=== PATIENT | male | born 1935 | race Caucasian/White ===

== ENCOUNTER 2018-10-07 14:11 | Emergency (ER) | payer MEDICARE ==
[~2018-10-07] VITALS: Ht 182.9 cm; Wt 100.2 kg
[~2018-10-07 14:11] MED LIST: Acidophilus La100 GM PO; CITA20 PO; GLIP2.5ER; GLIP2.5ER PO; HCTZ/LISINOPRIL; HYDCHL25 PO; HYDR1TAB94 PO; LISI20 PO; LOSA50 PO; NOVOLIN N SC; Omeprazole20 M1 PO; SIME80CH PO; SIMV20 PO; SIMV40
[2018-10-07 14:38] LABS: BASOPHILS ABSOLUTE AUTO 0.03 K/mm3 (0.00-0.23); BASOPHILS PERCENT AUTO 0 % (0-2); EOSINOPHILS ABSOLUTE AUTO 0.06 K/mm3 (0.00-0.68); EOSINOPHILS PERCENT AUTO 1 % (0-6); Hematocrit 42.8 % (37.0-53.0); Hemoglobin 14.3 g/dL (13.5-17.5); IMMATURE GRAN ABSOLUTE AUTO 0.02 K/mm3 (0.00-0.10); IMMATURE GRAN PERCENT AUTO 0 % (0-1); LYMPHOCYTES ABSOLUTE AUTO 3.33 K/mm3 (0.84-5.20); LYMPHOCYTES PERCENT AUTO 35 % (21-46); MONOCYTES ABSOLUTE AUTO 0.53 K/mm3 (0.16-1.47); MONOCYTES PERCENT AUTO 6 % (4-13); Mean Corpuscular HGB 30.3 pg (26.0-34.0); Mean Corpuscular HGB Conc 33.4 g/dL (31.5-36.5); Mean Corpuscular Volume 91 fL (80-100); Mean Platelet Volume 9.6 fL (9.1-12.4); NEUTROPHILS ABSOLUTE AUTO 5.56 K/mm3 (1.96-9.15); NEUTROPHILS PERCENT AUTO 58 % (41-73); Platelet Count 281 K/mm3 (150-400); RDW Coefficient Variation 12.3 % (11.7-14.2); RDW Standard Deviation 41.1 fL (35.1-46.3); Red Blood Cell Count 4.72 M/mm3 (4.30-5.90); White Blood Cell Count 9.53 K/mm3 (4.00-11.30)
[2018-10-07 14:49] LABS: International Normalized Ratio 1.04; Prothrombin Time Results 10.7 Sec (9.7-11.5)
[2018-10-07 15:00] LABS: Alanine Aminotransfer (ALT/SGP 17 U/L (12-78); Albumin, Blood 3.7 g/dL (3.4-5.0); Albumin/Globulin Ratio 0.9 (0.8-1.8); Alk Phos 116 U/L (50-136); Anion Gap 9 mmol/L (6-16); Aspartate Aminotrans (AST/SGOT 10 U/L (12-37); Bilirubin, Total 0.6 mg/dL (0.1-1.0); Blood Urea Nitrogen 18 mg/dL (8-24); Bun/Creatinine Ratio 17.5 (12.0-20.0); CO2, Blood 28 mmol/L (21-32); CPK Creatine Kinase 43 U/L (39-308); Calcium, Blood 8.9 mg/dL (8.5-10.1); Chloride, Blood 97 mmol/L (98-108); Creatinine, Blood 1.03 mg/dL (0.60-1.20); Glomerular Filtration Rate >60 (60-); Glucose, Blood 201 mg/dL (70-99); Potassium, Blood 3.6 mmol/L (3.5-5.5); Sodium, Blood 134 mmol/L (136-145); Total Protein, Blood 7.7 g/dL (6.4-8.2); Troponin I <0.015 ng/mL (0.000-0.040)
[2018-10-07] MEDS ORDERED: Amlodipine Bes2.5 MG PO (15:49)
[2018-10-07] MEDS ORDERED: OXYC5 PO (15:50)
[2018-10-07] MEDS ORDERED: GABA100 PO (15:51)
[2018-10-07] MEDS ORDERED: IBUP600 PO (15:52)
[2018-10-07] MEDS ORDERED: LOPE2C PO (15:52)
[2018-10-07] MEDS ORDERED: LOSA50 PO (15:53)
[2018-10-07] MEDS ORDERED: VITAMIN D250000 UNIT (15:55)
== END 2018-10-07 16:28 | disposition home or self-care (01) ==
LOC: ER 14:11
PROVIDERS: Emergency Medicine
DX: R55 Syncope and collapse (principal); I62.03 Nontraumatic chronic subdural hemorrhage; I25.2 Old myocardial infarction; I50.9 Heart failure, unspecified; Z88.8 Allergy status to other drugs, medicaments and biological substances; Z79.899 Other long term (current) drug therapy
CPT/HCPCS: 36415; 70450; 71046; 80053; 82550; 83880; 84484; 85025; 85610; 93005; 93010; 99285-25

== ENCOUNTER 2019-05-02 16:02 | Inpatient (IN) | payer MEDICARE ==
[~2019-05-02] VITALS: Ht 190.5 cm; Wt 91.3 kg
[~2019-05-02 16:02] MED LIST changes: +Amlodipine Bes2.5 MG PO; +GABA100 PO; +IBUP600 PO; +LOPE2C PO; +OXYC5 PO; +VITAMIN D250000 UNIT
[2019-05-02] MEDS ORDERED: AMLO5 PO (16:31)
[2019-05-02] MEDS ORDERED: CITA20 PO (16:31)
[2019-05-02] MEDS ORDERED: HUMULIN N100 UNIT/1 SC (16:32)
[2019-05-02] MEDS ORDERED: LOSA50 PO (16:33)
[2019-05-02] MEDS ORDERED: LACT PO (16:33)
[2019-05-02] MEDS ORDERED: OMEP20ER PO (16:34)
[2019-05-02] MEDS ORDERED: OXYC5 PO (16:41)
[2019-05-02] MEDS ORDERED: PRAZ1 PO (16:49)
[2019-05-02 17:52] LABS: BASOPHILS ABSOLUTE AUTO 0.03 K/mm3 (0.00-0.23); BASOPHILS PERCENT AUTO 0 % (0-2); EOSINOPHILS ABSOLUTE AUTO 0.05 K/mm3 (0.00-0.68); EOSINOPHILS PERCENT AUTO 1 % (0-6); Hematocrit 38.4 % (37.0-53.0); Hemoglobin 12.9 g/dL (13.5-17.5); IMMATURE GRAN ABSOLUTE AUTO 0.04 K/mm3 (0.00-0.10); IMMATURE GRAN PERCENT AUTO 0 % (0-1); LYMPHOCYTES ABSOLUTE AUTO 2.11 K/mm3 (0.84-5.20); LYMPHOCYTES PERCENT AUTO 21 % (21-46); MONOCYTES ABSOLUTE AUTO 0.83 K/mm3 (0.16-1.47); MONOCYTES PERCENT AUTO 8 % (4-13); Mean Corpuscular HGB 30.5 pg (26.0-34.0); Mean Corpuscular HGB Conc 33.6 g/dL (31.5-36.5); Mean Corpuscular Volume 91 fL (80-100); NEUTROPHILS ABSOLUTE AUTO 7.02 K/mm3 (1.96-9.15); NEUTROPHILS PERCENT AUTO 70 % (41-73); Platelet Count 246 K/mm3 (150-400); RDW Coefficient Variation 12.9 % (11.7-14.2); RDW Standard Deviation 42.5 fL (35.1-46.3); Red Blood Cell Count 4.23 M/mm3 (4.30-5.90); White Blood Cell Count 10.08 K/mm3 (4.00-11.30)
[2019-05-02 18:10] LABS: Alanine Aminotransfer (ALT/SGP 17 U/L (12-78); Albumin, Blood 3.4 g/dL (3.4-5.0); Albumin/Globulin Ratio 0.9 (0.8-1.8); Alk Phos 75 U/L (50-136); Anion Gap 7 mmol/L (6-16); Aspartate Aminotrans (AST/SGOT 15 U/L (12-37); Bilirubin, Total 0.5 mg/dL (0.1-1.0); Blood Urea Nitrogen 18 mg/dL (8-24); Bun/Creatinine Ratio 15.5 (12.0-20.0); CO2, Blood 27 mmol/L (21-32); Calcium, Blood 8.4 mg/dL (8.5-10.1); Chloride, Blood 102 mmol/L (98-108); Creatinine, Blood 1.16 mg/dL (0.60-1.20); Globulin, Blood 3.6 g/dL (2.2-4.0); Glomerular Filtration Rate >60 (60-); Glucose, Blood 120 mg/dL (70-99); Potassium, Blood 3.7 mmol/L (3.5-5.5); Sodium, Blood 136 mmol/L (136-145)
[2019-05-02 20:21] LABS: Source, Urine Clean Catch
[2019-05-02 20:25] LABS: Bilirubin, Urine Neg (Neg); Blood, Urine Neg (Neg); Glucose Qualitative, Urine Neg (Neg); Ketones, Urine Neg (Neg); Leukocyte Esterase, Urine Neg (Neg); Nitrite, Urine Neg (Neg); Protein, Urine Neg (Neg); Urobilinogen, Urine NORM (Normal)
[2019-05-02 20:29] LABS: Appearance, Urine Clear (Clear); Color, Urine Yellow (P-Yellow)
--- NOTE | 2019-05-03 04:43 | NUR ---
ELECTRONIC TECHNICIAN SUMMARY NEW ADMIT FROM THE ED TONIGHT. PT ADMITTED FOR SYNCOPE. PT HAD SEVERAL SYNCOPAL EPISODES AT HOME WITH SEVERAL GROUND LEVEL FALLS. PT HAS RED MITCH ON FOREHEAD FROM ONE OF THE FALLS. CHECKED ORTHOSTATIC VITALS WHEN PT ARRIVED TO FLOOR PER ORDERS. SBP 139 WHILE LAYING DOWN BUT DID DROP TO 79 WHEN STANDING. SBP RETURNS TO 120-130'S WHILE LAYING IN BED. PT DENIES DIZZINESS WHEN STANDING. 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 PT TO HAVE ECHO LATER TODAY. AAOX3, PLEASANT AND COOPERATIVE. VSS, WILL CONTINUE TO MONITOR.
[2019-05-03 05:09] LABS: BASOPHILS ABSOLUTE AUTO 0.02 K/mm3 (0.00-0.23); BASOPHILS PERCENT AUTO 0 % (0-2); EOSINOPHILS ABSOLUTE AUTO 0.09 K/mm3 (0.00-0.68); EOSINOPHILS PERCENT AUTO 1 % (0-6); Hematocrit 37.7 % (37.0-53.0); Hemoglobin 12.3 g/dL (13.5-17.5); IMMATURE GRAN ABSOLUTE AUTO 0.03 K/mm3 (0.00-0.10); IMMATURE GRAN PERCENT AUTO 0 % (0-1); LYMPHOCYTES ABSOLUTE AUTO 2.93 K/mm3 (0.84-5.20); LYMPHOCYTES PERCENT AUTO 39 % (21-46); MONOCYTES ABSOLUTE AUTO 0.66 K/mm3 (0.16-1.47); MONOCYTES PERCENT AUTO 9 % (4-13); Mean Corpuscular HGB 29.6 pg (26.0-34.0); Mean Corpuscular HGB Conc 32.6 g/dL (31.5-36.5); Mean Corpuscular Volume 91 fL (80-100); Mean Platelet Volume 10.2 fL (9.1-12.4); NEUTROPHILS ABSOLUTE AUTO 3.82 K/mm3 (1.96-9.15); NEUTROPHILS PERCENT AUTO 51 % (41-73); Platelet Count 231 K/mm3 (150-400); RDW Coefficient Variation 12.9 % (11.7-14.2); RDW Standard Deviation 42.7 fL (35.1-46.3); Red Blood Cell Count 4.15 M/mm3 (4.30-5.90); White Blood Cell Count 7.55 K/mm3 (4.00-11.30)
[2019-05-03 05:24] LABS: International Normalized Ratio 0.96; Prothrombin Time Results 10.2 Sec (9.7-11.5)
[2019-05-03 05:31] LABS: Alanine Aminotransfer (ALT/SGP 12 U/L (12-78); Albumin, Blood 3.1 g/dL (3.4-5.0); Albumin/Globulin Ratio 0.9 (0.8-1.8); Alk Phos 72 U/L (50-136); Anion Gap 5 mmol/L (6-16); Aspartate Aminotrans (AST/SGOT 7 U/L (12-37); Bilirubin, Total 0.5 mg/dL (0.1-1.0); Blood Urea Nitrogen 16 mg/dL (8-24); CHOL/HDL RATIO 5.2; CO2, Blood 28 mmol/L (21-32); Calcium, Blood 8.1 mg/dL (8.5-10.1); Chloride, Blood 107 mmol/L (98-108); Cholesterol 182 mg/dL (50-200); Globulin, Blood 3.5 g/dL (2.2-4.0); Glucose, Blood 116 mg/dL (70-99); HDL Cholesterol 35 mg/dL (>39); LDL/HDL RATIO 3.3; Low Density Lipoprotein Chol 114 mg/dL (0-110); Magnesium, Blood 2.2 mg/dL (1.6-2.4); Potassium, Blood 3.8 mmol/L (3.5-5.5); Sodium, Blood 140 mmol/L (136-145); Total Protein, Blood 6.6 g/dL (6.4-8.2); Triglycerides 163 mg/dL (30-160); Very Low Density Lipoprot Chol 32 mg/dL (6-32)
[2019-05-03 05:32] LABS: Bun/Creatinine Ratio 16.5 (12.0-20.0); Creatinine, Blood 0.97 mg/dL (0.60-1.20); Glomerular Filtration Rate >60 (60-)
--- NOTE | 2019-05-03 18:06 | NUR ---
SHIFT SUMMARY- PT DENIES PAIN. DENIES SOB. RESP E/U ON RA. DENIES N/V. PT HAD ECHO TODAY. PHYSICAL THERAPY AND OCCUPATIONAL THERAPY IN TO WORK WITH PT TODAY. FAMILY IN TO VISIT THIS AFTERNOON. NO OTHER SIGNIFICANT CHANGES THIS SHIFT.
--- NOTE | 2019-05-04 06:39 | NUR ---
SHIFT SUMMARY PT HAS NOT GOT OOB OR TRIED TO GET OOB. INCONT OF URINE. HE WAS ABLE TO SLEEP T/O NIGHT. NO C/O PAIN. CALL LIGHT IN REACH.
--- NOTE | 2019-05-04 17:38 | NUR ---
SHIFT SUMMARY- PT DENIES PAIN. DENIES SOB. RESP E/U ON RA. DENIES N/V. PT'S BP 146/73 WHILE SITTING THIS AM. PT'S BP DROPPED TO 113/[address] LINDER NOTIFIED. DR. LINDER ORDERED ONE TIME DOSE OF 500ML NS. PT'S IV INFILTRATED. DR. LINDER SAID OK TO PUT IN ORDER FOR NO IV ACCESS NEEDED. ENCOURGING PT TO DRINK WATER. L ARM ELEVATED ON PILLOW. ICE PACK APPLIED TO SITE. 1 ASSIST WITH FWW. NO OTHER SIGNIFICANT CHANGES THIS SHIFT.
[2019-05-05 05:33] LABS: Hematocrit 40.1 % (37.0-53.0); Hemoglobin 13.1 g/dL (13.5-17.5); Mean Corpuscular HGB 29.9 pg (26.0-34.0); Mean Corpuscular HGB Conc 32.7 g/dL (31.5-36.5); Mean Corpuscular Volume 92 fL (80-100); Platelet Count 239 K/mm3 (150-400); RDW Coefficient Variation 12.6 % (11.7-14.2); Red Blood Cell Count 4.38 M/mm3 (4.30-5.90); White Blood Cell Count 7.66 K/mm3 (4.00-11.30)
[2019-05-05 05:49] LABS: Anion Gap 6 mmol/L (6-16); Blood Urea Nitrogen 16 mg/dL (8-24); Bun/Creatinine Ratio 19.2 (12.0-20.0); CO2, Blood 28 mmol/L (21-32); Calcium, Blood 8.4 mg/dL (8.5-10.1); Chloride, Blood 105 mmol/L (98-108); Creatinine, Blood 0.83 mg/dL (0.60-1.20); Glomerular Filtration Rate >60 (60-); Glucose, Blood 130 mg/dL (70-99); Potassium, Blood 4.2 mmol/L (3.5-5.5); Sodium, Blood 139 mmol/L (136-145)
--- NOTE | 2019-05-05 05:58 | NUR ---
SHIFT SUMMARY PT INCONT OF URINE. HE WAS ABLE TO SLEEP THROUGH THE NIGHT. NO ACUTE CHANGES. CALL LIGHT IN REACH.
[2019-05-05] MEDS ORDERED: METO25ER PO (10:58)
--- NOTE | 2019-05-05 13:44 | NUR ---
D/C INSTRUCTIONS PROVIDED AND EXPLAINED TO PT AND PT'S DAUGHTER. TELE REMOVED. PT D/C VIA WHEELCHAIR WITH TIPPLE ENGINEER AND FAMILY.
== END 2019-05-05 12:10 | disposition home health service (06) | DRG 312 ==
LOC: ER 16:02 → MEDS 16:03
PROVIDERS: Emergency Medicine; Internal Medicine; Nurse Practitioner Acute Care; ADMIT Hospitalist
DX: I95.1 Orthostatic hypotension (principal); G45.9 Transient cerebral ischemic attack, unspecified; I50.22 Chronic systolic (congestive) heart failure; E11.9 Type 2 diabetes mellitus without complications; E78.5 Hyperlipidemia, unspecified; F03.90 Unspecified dementia, unspecified severity, without behavioral disturbance, psychotic disturbance, mood disturbance, and anxiety; I11.0 Hypertensive heart disease with heart failure; I25.10 Atherosclerotic heart disease of native coronary artery without angina pectoris; F32.9 Major depressive disorder, single episode, unspecified; G40.909 Epilepsy, unspecified, not intractable, without status epilepticus; Z79.4 Long term (current) use of insulin; J43.9 Emphysema, unspecified; R53.1 Weakness
CPT/HCPCS: 36415; 70496; 70498; 80048; 80053; 80061; 81003; 82947; 83605; 83735; 84146; 84484; 85025; 85027; 85610; 93306; 94762; 96372; 97161; 97165; 97530; 99285-25; G0378; J1650; J7030; J7040; Q9967

== ENCOUNTER 2023-02-13 00:58 | Emergency (ER) | payer OTHER ==
[~2023-02-13] VITALS: Ht 185.4 cm; Wt 81.7 kg
[~2023-02-13 00:58] MED LIST changes: +AMLO5 PO; +HUMULIN N100 UNIT/1 SC; +LACT PO; +METO25ER PO; +OMEP20ER PO; +PRAZ1 PO
[2023-02-13 01:20] LABS: BASOPHILS ABSOLUTE AUTO 0.02 K/mm3 (0.00-0.23); BASOPHILS PERCENT AUTO 0 % (0-2); EOSINOPHILS ABSOLUTE AUTO 0.05 K/mm3 (0.00-0.68); EOSINOPHILS PERCENT AUTO 1 % (0-6); Hematocrit 38.1 % (37.0-53.0); Hemoglobin 12.5 g/dL (13.5-17.5); IMMATURE GRAN ABSOLUTE AUTO 0.01 K/mm3 (0.00-0.10); IMMATURE GRAN PERCENT AUTO 0 % (0-1); LYMPHOCYTES ABSOLUTE AUTO 3.74 K/mm3 (0.84-5.20); LYMPHOCYTES PERCENT AUTO 38 % (21-46); MONOCYTES PERCENT AUTO 7 % (4-13); Mean Corpuscular HGB 29.3 pg (26.0-34.0); Mean Corpuscular HGB Conc 32.8 g/dL (31.5-36.5); Mean Corpuscular Volume 89 fL (80-100); Mean Platelet Volume 9.5 fL (9.1-12.4); NEUTROPHILS ABSOLUTE AUTO 5.35 K/mm3 (1.96-9.15); NEUTROPHILS PERCENT AUTO 54 % (41-73); Platelet Count 308 K/mm3 (150-400); RDW Coefficient Variation 13.2 % (11.7-14.2); Red Blood Cell Count 4.26 M/mm3 (4.30-5.90); White Blood Cell Count 9.87 K/mm3 (4.00-11.30)
[2023-02-13 01:39] LABS: Albumin, Blood 2.9 g/dL (3.4-5.0); Albumin/Globulin Ratio 0.6 (0.8-1.8); Bilirubin, Total 0.3 mg/dL (0.1-1.0); Bun/Creatinine Ratio 15.9 (12.0-20.0); Calcium, Blood 8.9 mg/dL (8.5-10.1); Creatinine, Blood 1.07 mg/dL (0.60-1.20); Globulin, Blood 4.6 g/dL (2.2-4.0); Potassium, Blood 3.6 mmol/L (3.5-5.5); Total Protein, Blood 7.5 g/dL (6.4-8.2)
[2023-02-13 02:36] LABS: Source, Urine Suprapubic Cath
[2023-02-13 02:41] LABS: Bilirubin, Urine Neg (Neg); Blood, Urine 4+ (Neg); Glucose Qualitative, Urine Neg (Neg); Ketones, Urine 2+ (Neg); Leukocyte Esterase, Urine 3+ (Neg); Nitrite, Urine Pos (Neg); Protein, Urine 3+ (Neg); Specific Gravity, Urine 1.015 (1.003-1.022); Urobilinogen, Urine NORM (Normal)
[2023-02-13 02:50] LABS: Appearance, Urine Cloudy (Clear); Color, Urine Yellow (P-Yellow)
[2023-02-13 02:51] LABS: Amorphous Mod (0-Heavy); Bacteria Many /hpf; Red Blood Cells, Urine 0-2 /hpf (0-2); Squamous Epithelial Cells Not Seen /hpf (Few); White Blood Cells, Urine TNTC /hpf (0-5)
[2023-02-13] MEDS ORDERED: SULTRIDS PO (04:27)
[2023-02-13] MEDS ORDERED: CEPH500 PO (04:27)
[2023-02-13 04:30] VITALS: BP 114/60
== END 2023-02-13 04:47 | disposition home or self-care (01) ==
LOC: ER 00:58
PROVIDERS: Student in an Organized Health Care Education/Training Program
DX: N39.0 Urinary tract infection, site not specified (principal); E86.0 Dehydration; L03.90 Cellulitis, unspecified; I11.0 Hypertensive heart disease with heart failure; I50.22 Chronic systolic (congestive) heart failure; E11.9 Type 2 diabetes mellitus without complications; G40.909 Epilepsy, unspecified, not intractable, without status epilepticus; I25.2 Old myocardial infarction; I25.10 Atherosclerotic heart disease of native coronary artery without angina pectoris; Z88.8 Allergy status to other drugs, medicaments and biological substances; Z79.899 Other long term (current) drug therapy; Z79.4 Long term (current) use of insulin; Z86.73 Personal history of transient ischemic attack (TIA), and cerebral infarction without residual deficits
CPT/HCPCS: 36415; 74177; 80053; 81001; 83605; 85025; 87077; 87086; 87186; 93005; 93010; 96361; 96374-59; 99284-25; J0696; J7030; Q9967

== ENCOUNTER 2023-06-25 15:14 | Emergency (ER) | payer OTHER, MEDICARE ==
[~2023-06-25] VITALS: Ht 182.9 cm; Wt 95.2 kg
[~2023-06-25 15:14] MED LIST changes: +CEFD300 PO; +CEPH500 PO; +SULTRIDS PO
[2023-06-25] MEDS ORDERED: TOLT4 PO (16:02)
[2023-06-25] MEDS ORDERED: DOXY100 PO (16:03)
[2023-06-25] MEDS ORDERED: METF500 PO (16:03)
[2023-06-25 16:04] LABS: BASOPHILS ABSOLUTE AUTO 0.02 K/mm3 (0.00-0.23); BASOPHILS PERCENT AUTO 0 % (0-2); EOSINOPHILS ABSOLUTE AUTO 0.07 K/mm3 (0.00-0.68); EOSINOPHILS PERCENT AUTO 1 % (0-6); Hemoglobin 13.1 g/dL (13.5-17.5); IMMATURE GRAN ABSOLUTE AUTO 0.03 K/mm3 (0.00-0.10); IMMATURE GRAN PERCENT AUTO 0 % (0-1); LYMPHOCYTES ABSOLUTE AUTO 4.37 K/mm3 (0.84-5.20); LYMPHOCYTES PERCENT AUTO 34 % (21-46); MONOCYTES ABSOLUTE AUTO 0.84 K/mm3 (0.16-1.47); MONOCYTES PERCENT AUTO 7 % (4-13); Mean Corpuscular HGB 30.4 pg (26.0-34.0); Mean Corpuscular HGB Conc 33.6 g/dL (31.5-36.5); Mean Corpuscular Volume 91 fL (80-100); Mean Platelet Volume 9.8 fL (9.1-12.4); NEUTROPHILS ABSOLUTE AUTO 7.69 K/mm3 (1.96-9.15); NEUTROPHILS PERCENT AUTO 59 % (41-73); Platelet Count 325 K/mm3 (150-400); RDW Standard Deviation 43.6 fL (35.1-46.3); Red Blood Cell Count 4.31 M/mm3 (4.30-5.90); White Blood Cell Count 13.02 K/mm3 (4.00-11.30)
[2023-06-25] MEDS ORDERED: LOPE2C PO (16:04)
[2023-06-25] MEDS ORDERED: ACET500 PO (16:04)
[2023-06-25] MEDS ORDERED: NITR100CA PO (16:05)
[2023-06-25] MEDS ORDERED: SIME80CH PO (16:06)
[2023-06-25] MEDS ORDERED: KETO15TC TOP (16:07)
[2023-06-25 16:34] LABS: Albumin, Blood 3.2 g/dL (3.4-5.0); Albumin/Globulin Ratio 0.7 (0.8-1.8); Bilirubin, Total 0.4 mg/dL (0.1-1.0); Bun/Creatinine Ratio 22.6 (12.0-20.0); Calcium, Blood 9.5 mg/dL (8.5-10.1); Creatinine, Blood 0.84 mg/dL (0.60-1.20); Globulin, Blood 4.5 g/dL (2.2-4.0); Magnesium, Blood 1.8 mg/dL (1.6-2.4); Potassium, Blood 3.9 mmol/L (3.5-5.5); Total Protein, Blood 7.7 g/dL (6.4-8.2)
[2023-06-25 19:35] LABS: Source, Urine Suprapubic Cath
[2023-06-25 19:38] LABS: Appearance, Urine Cloudy (Clear); Bilirubin, Urine Neg (Neg); Blood, Urine 4+ (Neg); Color, Urine Yellow (P-Yellow); Glucose Qualitative, Urine Neg (Neg); Ketones, Urine Neg (Neg); Leukocyte Esterase, Urine 3+ (Neg); Nitrite, Urine Neg (Neg); Protein, Urine 3+ (Neg); Urobilinogen, Urine NORM (Normal)
[2023-06-25 19:48] LABS: White Blood Cells, Urine TNTC /hpf (0-5)
[2023-06-25 19:49] LABS: Bacteria Many /hpf; Squamous Epithelial Cells Not Seen /hpf (Few); Yeast/Fungi Urine Mod /hpf
[2023-06-25 20:00] VITALS: BP 125/63
[2023-06-25] MEDS ORDERED: Bactrim Ds Tab1 EACH PO (20:35)
== END 2023-06-25 20:42 | disposition home or self-care (01) ==
LOC: ER 15:14
PROVIDERS: Physician Assistant
DX: N39.0 Urinary tract infection, site not specified (principal); R53.1 Weakness; E11.9 Type 2 diabetes mellitus without complications; G40.909 Epilepsy, unspecified, not intractable, without status epilepticus; K21.9 Gastro-esophageal reflux disease without esophagitis; I25.2 Old myocardial infarction; Z79.4 Long term (current) use of insulin; Z86.73 Personal history of transient ischemic attack (TIA), and cerebral infarction without residual deficits; I11.0 Hypertensive heart disease with heart failure; I50.22 Chronic systolic (congestive) heart failure; Z88.8 Allergy status to other drugs, medicaments and biological substances; Z79.84 Long term (current) use of oral hypoglycemic drugs; Z79.899 Other long term (current) drug therapy
CPT/HCPCS: 51702; 70450; 71045; 80053; 81001; 82947; 83735; 85025; 87077; 87086; 87106; 87186; 93005; 93010; 96360-59; 99285-25; A9270; J7030

== ENCOUNTER 2023-08-03 18:11 | Inpatient (IN) | payer OTHER ==
[~2023-08-03] VITALS: Ht 188 cm; Wt 76.5 kg
[~2023-08-03 18:11] MED LIST changes: +ACET500 PO; +Bactrim Ds Tab1 EACH PO; +DOXY100 PO; +KETO15TC TOP; +METF500 PO; +NITR100CA PO; +TOLT4 PO
[2023-08-03 19:24] LABS: BASOPHILS ABSOLUTE AUTO 0.03 K/mm3 (0.00-0.23); BASOPHILS PERCENT AUTO 0 % (0-2); EOSINOPHILS ABSOLUTE AUTO 0.13 K/mm3 (0.00-0.68); EOSINOPHILS PERCENT AUTO 1 % (0-6); Hematocrit 39.5 % (37.0-53.0); Hemoglobin 12.9 g/dL (13.5-17.5); IMMATURE GRAN ABSOLUTE AUTO 0.04 K/mm3 (0.00-0.10); IMMATURE GRAN PERCENT AUTO 0 % (0-1); LYMPHOCYTES ABSOLUTE AUTO 4.53 K/mm3 (0.84-5.20); LYMPHOCYTES PERCENT AUTO 39 % (21-46); MONOCYTES ABSOLUTE AUTO 0.66 K/mm3 (0.16-1.47); MONOCYTES PERCENT AUTO 6 % (4-13); Mean Corpuscular HGB Conc 32.7 g/dL (31.5-36.5); Mean Corpuscular Volume 92 fL (80-100); Mean Platelet Volume 9.5 fL (9.1-12.4); NEUTROPHILS ABSOLUTE AUTO 6.19 K/mm3 (1.96-9.15); NEUTROPHILS PERCENT AUTO 54 % (41-73); Platelet Count 388 K/mm3 (150-400); RDW Standard Deviation 43.8 fL (35.1-46.3); White Blood Cell Count 11.58 K/mm3 (4.00-11.30)
[2023-08-03 19:42] LABS: Albumin, Blood 3.2 g/dL (3.4-5.0); Albumin/Globulin Ratio 0.6 (0.8-1.8); Bilirubin, Total 0.2 mg/dL (0.1-1.0); Bun/Creatinine Ratio 18.4 (12.0-20.0); Calcium, Blood 8.9 mg/dL (8.5-10.1); Creatinine, Blood 0.76 mg/dL (0.60-1.20); Potassium, Blood 3.6 mmol/L (3.5-5.5); Total Protein, Blood 8.2 g/dL (6.4-8.2)
[2023-08-04 01:57] LABS: Magnesium, Blood 1.8 mg/dL (1.6-2.4); Phosphorus, Blood 2.7 mg/dL (2.5-4.9)
[2023-08-04 02:21] LABS: Source, Urine Urostomy Bag
[2023-08-04 02:23] LABS: Bilirubin, Urine Neg (Neg); Blood, Urine 4+ (Neg); Glucose Qualitative, Urine Neg (Neg); Ketones, Urine Neg (Neg); Leukocyte Esterase, Urine 3+ (Neg); Nitrite, Urine Neg (Neg); Protein, Urine 3+ (Neg); Urobilinogen, Urine NORM (Normal)
[2023-08-04 02:37] LABS: Appearance, Urine Turbid (Clear); Color, Urine Yellow (P-Yellow)
[2023-08-04 02:39] LABS: Bacteria Many /hpf; Squamous Epithelial Cells Few /hpf (Few); White Blood Cells, Urine TNTC /hpf (0-5)
[2023-08-04] MEDS ORDERED: MYRBETRIQ25 MG PO (06:08)
[2023-08-04] MEDS ORDERED: Pyridium100 MG PO (06:08)
[2023-08-04 06:46] VITALS: BP 129/60
[2023-08-04 07:17] VITALS: BP 133/66
[2023-08-04 15:33] VITALS: BP 141/66
--- NOTE | 2023-08-04 17:57 | NUR ---
SHIFT SUMMARY- PT ALERT AND ORIENTED, BEATRICE, FAMILY AT THE BEDSIDE. DR FREDERICK CONSULT CALLED AND HE CAME TO SEE THE PT TODAY. VASCULAR STUDY ORDERED. PT HAS BEEN IN BED T/O THE DAY MEDICATED FOR PIAN THE FAMILY REQUESTED, THE PT IS STOIC AND DOES NOT ASK FOR PAIN MANAGEMENT. WHEN OFFERED PAIN MEDICATION HE WILL SAY "IF YOU GOT SOME I'LL TAKE IT" FAMILY INDICATES NORMALLY HIS ANSWER WOULD BE "NO." PT IN BED, CALL LIGHT IN REACH NO S&S OF DISTRESS NOTED. PT FAMILY STATED THAT THE PT MEDS WERE RECONCILLED IN THE ER. ADMIT COMPLETED.
[2023-08-04 20:04] VITALS: BP 136/65
[2023-08-05 03:31] VITALS: BP 154/70
[2023-08-05 05:49] LABS: BASOPHILS ABSOLUTE AUTO 0.03 K/mm3 (0.00-0.23); BASOPHILS PERCENT AUTO 0 % (0-2); EOSINOPHILS ABSOLUTE AUTO 0.15 K/mm3 (0.00-0.68); EOSINOPHILS PERCENT AUTO 2 % (0-6); Hematocrit 32.2 % (37.0-53.0); Hemoglobin 10.6 g/dL (13.5-17.5); IMMATURE GRAN ABSOLUTE AUTO 0.02 K/mm3 (0.00-0.10); IMMATURE GRAN PERCENT AUTO 0 % (0-1); LYMPHOCYTES ABSOLUTE AUTO 3.55 K/mm3 (0.84-5.20); LYMPHOCYTES PERCENT AUTO 45 % (21-46); MONOCYTES ABSOLUTE AUTO 0.66 K/mm3 (0.16-1.47); MONOCYTES PERCENT AUTO 8 % (4-13); Mean Corpuscular HGB 29.8 pg (26.0-34.0); Mean Corpuscular HGB Conc 32.9 g/dL (31.5-36.5); Mean Corpuscular Volume 90 fL (80-100); Mean Platelet Volume 9.5 fL (9.1-12.4); NEUTROPHILS ABSOLUTE AUTO 3.51 K/mm3 (1.96-9.15); NEUTROPHILS PERCENT AUTO 44 % (41-73); Platelet Count 295 K/mm3 (150-400); RDW Coefficient Variation 12.6 % (11.7-14.2); RDW Standard Deviation 41.6 fL (35.1-46.3); Red Blood Cell Count 3.56 M/mm3 (4.30-5.90); White Blood Cell Count 7.92 K/mm3 (4.00-11.30)
--- NOTE | 2023-08-05 06:09 | NUR ---
GREATEST CONCERN WITH MR BELL WAS HIS URINE OUTPUT WHICH WAS 4050 FOR THE NIGHT. URINE IS CLEAR AND ALMOST COLORLESS. PATIENT HAS ONLY HAD SIPS OF FLUID WITH HIS MEDICATIONS. NO CHANGES OVERNIGHT WITH REGARD TO LEFT LOWER QUADRANT PAIN. PATIENT CONTINUES TO REQUIRE 2MG PO DILAUDID EVERY 4 HOURS. MINIMAL COMPLAINTS OF PAIN IN LEFT FOOT.
[2023-08-05 06:20] LABS: Bun/Creatinine Ratio 15.4 (12.0-20.0); Calcium, Blood 8.6 mg/dL (8.5-10.1); Creatinine, Blood 0.85 mg/dL (0.60-1.20); Potassium, Blood 4.1 mmol/L (3.5-5.5)
[2023-08-05 07:26] VITALS: BP 146/69
[2023-08-05 16:40] LABS: Vancomycin, Trough 17.1 ug/mL (5.0-10.0)
[2023-08-05 16:53] VITALS: BP 136/73
--- NOTE | 2023-08-05 17:59 | NUR ---
SHIFT SUMMARY- PT SEEMS TO BE MORE IMPROVED TODAY. HIS PAIN SEEMS WELL MANAGED AND HE IS MORE INTERACTIVE WITH STAFF. FAMILY DECLINED TO ALLOW STAFF TO BATHE THE PT TODAY STATING THEY PLAN TO DO IT, BED BATH AND LINNEN SUPPLIES PROVIDED. THE PT GRAND DAUGHTER PLANS TO DO THE BATH THIS EVENING ON [employer]ICAL DISPENSER. PT IN BED, CALL LIGHT IN REACH NO S&S OF DISTRESS NOTED. IV ABX INFUSING. FAMILY AT THE BEDSIDE.
[2023-08-05 21:04] VITALS: BP 133/55
[2023-08-06 07:39] VITALS: BP 156/73
--- NOTE | 2023-08-06 09:08 | NUR ---
SHIFT NOTE PT CONTINUES TO HAVE LEFT ABDOMEN PAIN. MEDICATED PER DEC. LAQUITA GAVE BATH AT BEDSIDE. CONTINUITY OF CARE ENDORSED TO ON COMING NURSE. ROUNDING COMPLETED.
[2023-08-06 09:34] LABS: BASOPHILS ABSOLUTE AUTO 0.05 K/mm3 (0.00-0.23); BASOPHILS PERCENT AUTO 1 % (0-2); EOSINOPHILS ABSOLUTE AUTO 0.18 K/mm3 (0.00-0.68); EOSINOPHILS PERCENT AUTO 2 % (0-6); Hematocrit 33.5 % (37.0-53.0); Hemoglobin 10.9 g/dL (13.5-17.5); IMMATURE GRAN ABSOLUTE AUTO 0.01 K/mm3 (0.00-0.10); IMMATURE GRAN PERCENT AUTO 0 % (0-1); LYMPHOCYTES ABSOLUTE AUTO 2.74 K/mm3 (0.84-5.20); LYMPHOCYTES PERCENT AUTO 36 % (21-46); MONOCYTES ABSOLUTE AUTO 0.66 K/mm3 (0.16-1.47); MONOCYTES PERCENT AUTO 9 % (4-13); Mean Corpuscular HGB 29.5 pg (26.0-34.0); Mean Corpuscular HGB Conc 32.5 g/dL (31.5-36.5); Mean Corpuscular Volume 91 fL (80-100); Mean Platelet Volume 9.4 fL (9.1-12.4); NEUTROPHILS ABSOLUTE AUTO 4.03 K/mm3 (1.96-9.15); NEUTROPHILS PERCENT AUTO 53 % (41-73); Platelet Count 298 K/mm3 (150-400); RDW Coefficient Variation 12.5 % (11.7-14.2); RDW Standard Deviation 41.4 fL (35.1-46.3); Red Blood Cell Count 3.69 M/mm3 (4.30-5.90); White Blood Cell Count 7.67 K/mm3 (4.00-11.30)
[2023-08-06 09:58] LABS: Bun/Creatinine Ratio 17.1 (12.0-20.0); Calcium, Blood 8.8 mg/dL (8.5-10.1); Creatinine, Blood 0.76 mg/dL (0.60-1.20); Potassium, Blood 4.1 mmol/L (3.5-5.5)
--- NOTE | 2023-08-06 11:40 | NUR ---
CALLED DR WILCOX- PT HAS LLQ PAIN THAT HAS BEEN ONGOING FOR THE PAST YEAR. PER FAMILY IT HAS GOTTEN MUCH WORSE OVER THE LAST COUPLE OF MONTHS, TO THE POINT THE PT COULD NOT EAT. PT HAS NOT STOOLED SINCE ADMISSION RECIEVED ORDER FOR SENNA AND MIRALAX NOW AND DAILY.
[2023-08-06 16:02] VITALS: BP 146/70
[2023-08-06 17:36] LABS: Vancomycin, Trough 18.9 ug/mL (5.0-10.0)
--- NOTE | 2023-08-06 19:36 | NUR ---
SHIFT SUMMARY- PT ALERT AND ORIENTED. HE IS STILL STATING LLQ PAIN AND RECIEVING 2MG IV DILAUDID Q4 FOR IT. SPOKE TO DR WILCOX, PT MEDICATED WITH MIRALAX AND SENNA, NO RESULT AT THIS TIME. REPORT COMPLETED WITH NIGHT RN. PT IN BED, CALL LIGHT IN REACH FAMILY AT THE BEDSIDE NO S&S OF DISTRESS NOTED.
[2023-08-06 20:06] VITALS: BP 148/69
[2023-08-07 03:53] VITALS: BP 137/70
[2023-08-07 05:35] LABS: BASOPHILS ABSOLUTE AUTO 0.05 K/mm3 (0.00-0.23); BASOPHILS PERCENT AUTO 1 % (0-2); EOSINOPHILS ABSOLUTE AUTO 0.22 K/mm3 (0.00-0.68); EOSINOPHILS PERCENT AUTO 3 % (0-6); Hematocrit 33.6 % (37.0-53.0); Hemoglobin 11.1 g/dL (13.5-17.5); IMMATURE GRAN ABSOLUTE AUTO 0.03 K/mm3 (0.00-0.10); IMMATURE GRAN PERCENT AUTO 0 % (0-1); LYMPHOCYTES PERCENT AUTO 42 % (21-46); MONOCYTES ABSOLUTE AUTO 0.75 K/mm3 (0.16-1.47); MONOCYTES PERCENT AUTO 9 % (4-13); Mean Corpuscular Volume 91 fL (80-100); Mean Platelet Volume 9.3 fL (9.1-12.4); NEUTROPHILS ABSOLUTE AUTO 3.75 K/mm3 (1.96-9.15); NEUTROPHILS PERCENT AUTO 45 % (41-73); Platelet Count 310 K/mm3 (150-400); RDW Coefficient Variation 12.5 % (11.7-14.2); RDW Standard Deviation 41.3 fL (35.1-46.3)
[2023-08-07 05:58] LABS: Bun/Creatinine Ratio 15.4 (12.0-20.0); Calcium, Blood 8.8 mg/dL (8.5-10.1); Creatinine, Blood 0.78 mg/dL (0.60-1.20)
--- NOTE | 2023-08-07 06:27 | NUR ---
SHIFT SUMMARY PT IS A&O3, BEDREST, RA, VSS, PRN PAIN MEDICATION GIVEN PER MAR Q4 THROUGHOUT SHIFT, FAMILY AT BEDSIDE OVERNIGHT, NO ACUTE EVENTS CONTINUE POC
[2023-08-07 07:33] VITALS: BP 149/68
--- NOTE | 2023-08-07 10:42 | NUR ---
WOUND CARE L PLANTAR WOUND CLEANSED WITH NS, MEDIHONEY ALGINATE TO WOUND BED COVERED BY BORDERED FOA. X-RAY NEGATIVE FPR OSTEO. KOSTA DEMINISHED BUT ADEQUATE FOR WOUND HEALING. EDUCATED FAMILY ON DRESSING CHANGE AND SUPPLIES PROVIDED. PT WOULD BENEFIT [facility] B[facility] AT HOME THIS APPEARS TO BE THE SOUECE OF PRESSURE.
[2023-08-07] MEDS ORDERED: CUBICIN RF500 M1 IV (11:31)
[2023-08-07 15:26] VITALS: BP 147/73
--- NOTE | 2023-08-07 17:35 | NUR ---
SHIFT SUMMARY: PT IS AN 85 YEAR OLD PLEASANT AND COOPERATIVE MALE WHO IS HERE NOW ON COMFORT CARE OF METASTATIC PROSTATE CANCER. COMFORT CARE PROTOCOL WAS INITATED LATER DAY AND HAS BEEN TOLERATING COMFORT MEDICATIONS WELL. CLINIMIX STILL INFUSING PER DR. DOLAN AND TO D/C IF IV FAILS. HIS IS AT BEDSIDE. HE IS IN BED RESTING, CALL LIGHT WITHIN REACH, AND NO SIGNS OR SYMPTOMS OF DISTRESS. PLAN OF CARE ONGOING.
--- NOTE | 2023-08-07 17:42 | NUR ---
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 HE IS RECEIVING IV ANTIBIOTIC TREATMENT AT THIS TIME AND IS AWAITING FOR APPROVAL FOR IV ANTIBIOTIC INFUSIONS DAILY TO BE CONTINUED OUTPATIENT AT [facility] THROUGH THE [facility]. DISCHARGE ORDERS HAVE BEEN PLACED AND COMPLETED, BUT UNTIL APPROVAL IS RECEIVED FROM PA FOR HIM TO GET OUTPATIENT IV THERAPY WE WILL HAVE THE PATIENT STAY INPATIENT AND CONTINUE THERAPY. FAMILY IS AT BEDSIDE, PATIENT IS IN BED, CALL LIGHT WITHIN REACH, NO SIGNS OR SYMPTOMS OF DISTRESS. PLAN OF CARE ONGOING.
[2023-08-07 20:07] VITALS: BP 153/75
--- NOTE | 2023-08-08 04:23 | NUR ---
SHIFT SUMMARY: PT IS ADMITTED FOR UTI. IS A DNR. IS ALERT AND ABLE TO MAKE MOST NEEDS KNOWN. ADL S ARE 2 PERSON MAX FOR MOST. HAS IV TO LEFT FOREARM THAT WAS FLUSHED WITH 5ML NS. WAS GIVEN PRN PAIN MANAGEMENT X3 THIS SHIFT. HAS SUPERPUBIC CATH IN PLACE DRAINING CLEAR YELLOW URINE.
[2023-08-08 04:48] VITALS: BP 127/64
[2023-08-08 08:03] VITALS: BP 150/72
--- NOTE | 2023-08-08 14:29 | NUR ---
DISCHARGE NOTE: PT HAD A POWERGLIDE PLACED IN HIS RIGHT UPPER ARM PRIOR TO DISCHARGE FOR OUTPATIENT IV ANTIBIOTIC THERAPY THROUGH THE [facility]. THE DRESSING WAS INTACTED, PATENT, AND FAMILY EDUCATED ON DEVICE AND PURPOSE. REST OF DISCHARGE PLAN WENT OVER WITH PATIENT AND FAMILY, DISCHARGE FORM SIGNED BY FAMILY MEMEBER AND PATIENT'S BELONGINGS COLLECTED. HIS SNOW BAG WAS CHANGED TO A LEG BAG FOR TRANSPORT. HE WAS TRANSFERRED VIA WHEELCHAIR WITH FAMILY TO THEIR VEHICLE.
== END 2023-08-08 13:09 | disposition home or self-care (01) | DRG 699 ==
LOC: ER 18:11 → MEDS 08-04 03:42 → ENPENDDIS 08-07 10:29 → MEDS 08-08 13:09
PROVIDERS: Internal Medicine; Physician Assistant; ADMIT Internal Medicine
DX: T83.518A Infection and inflammatory reaction due to other urinary catheter, initial encounter (principal); E11.52 Type 2 diabetes mellitus with diabetic peripheral angiopathy with gangrene; N39.0 Urinary tract infection, site not specified; I50.22 Chronic systolic (congestive) heart failure; I70.262 Atherosclerosis of native arteries of extremities with gangrene, left leg; B95.62 Methicillin resistant Staphylococcus aureus infection as the cause of diseases classified elsewhere; Z66 Do not resuscitate; E11.621 Type 2 diabetes mellitus with foot ulcer; L97.523 Non-pressure chronic ulcer of other part of left foot with necrosis of muscle; I11.0 Hypertensive heart disease with heart failure; F03.90 Unspecified dementia, unspecified severity, without behavioral disturbance, psychotic disturbance, mood disturbance, and anxiety; G40.909 Epilepsy, unspecified, not intractable, without status epilepticus; K21.9 Gastro-esophageal reflux disease without esophagitis; F32.9 Major depressive disorder, single episode, unspecified; I25.10 Atherosclerotic heart disease of native coronary artery without angina pectoris; I25.2 Old myocardial infarction; Z86.73 Personal history of transient ischemic attack (TIA), and cerebral infarction without residual deficits; Z79.4 Long term (current) use of insulin; Z88.8 Allergy status to other drugs, medicaments and biological substances
CPT/HCPCS: 36415; 51705; 73620; 74177; 80048; 80053; 80202; 81001; 82947; 83605; 83735; 84100; 85025; 85651; 87077; 87086; 87147; 87186; 93005; 93010; 93922; 96361-59; 96365-59; 96366-59; 96367-59; 96375-59; 96376-59; 99285-25; A9270; C2627; J0692; J0696; J0878; J1650; J3010; J3370; J7030; J7050; Q9967

== ENCOUNTER 2023-08-10 03:15 | Day surgery (SDC) | payer OTHER ==
[~2023-08-10 03:15] MED LIST changes: +CUBICIN RF500 M1 IV; +MYRBETRIQ25 MG PO; +Pyridium100 MG PO
[2023-08-10 15:34] VITALS: BP 133/61
--- NOTE | 2023-08-10 16:06 | NUR ---
END TIME: 4691
== END 2023-08-10 15:56 | disposition home or self-care (01) ==
LOC: ATC 03:15
DX: T83.518A Infection and inflammatory reaction due to other urinary catheter, initial encounter (principal); B95.62 Methicillin resistant Staphylococcus aureus infection as the cause of diseases classified elsewhere; L97.429 Non-pressure chronic ulcer of left heel and midfoot with unspecified severity; E11.621 Type 2 diabetes mellitus with foot ulcer; I10 Essential (primary) hypertension; I25.10 Atherosclerotic heart disease of native coronary artery without angina pectoris
CPT/HCPCS: 96365; J0878

== ENCOUNTER 2023-08-11 04:57 | Day surgery (SDC) | payer OTHER ==
[2023-08-11 15:26] VITALS: BP 155/76
== END 2023-08-11 15:52 | disposition home or self-care (01) ==
LOC: ATC 04:57
DX: T83.518A Infection and inflammatory reaction due to other urinary catheter, initial encounter (principal); B95.62 Methicillin resistant Staphylococcus aureus infection as the cause of diseases classified elsewhere; L97.429 Non-pressure chronic ulcer of left heel and midfoot with unspecified severity; E11.621 Type 2 diabetes mellitus with foot ulcer; I10 Essential (primary) hypertension; I25.10 Atherosclerotic heart disease of native coronary artery without angina pectoris
CPT/HCPCS: 96365; J0878

== ENCOUNTER 2023-08-15 00:20 | Day surgery (SDC) | payer OTHER ==
[2023-08-15 15:35] VITALS: BP 148/80
== END 2023-08-15 16:00 | disposition home or self-care (01) ==
LOC: ATC 00:20
DX: Z45.2 Encounter for adjustment and management of vascular access device (principal); B95.62 Methicillin resistant Staphylococcus aureus infection as the cause of diseases classified elsewhere; T83.0 Mechanical complication of urinary catheter; I25.2 Old myocardial infarction; F32.9 Major depressive disorder, single episode, unspecified; I11.0 Hypertensive heart disease with heart failure; I50.22 Chronic systolic (congestive) heart failure; E11.9 Type 2 diabetes mellitus without complications; I25.10 Atherosclerotic heart disease of native coronary artery without angina pectoris
CPT/HCPCS: J0878

== ENCOUNTER 2023-08-17 03:04 | Day surgery (SDC) | payer OTHER ==
[2023-08-17 15:26] VITALS: BP 132/69
== END 2023-08-17 15:50 | disposition home or self-care (01) ==
LOC: ATC 03:04
DX: T83.511A Infection and inflammatory reaction due to indwelling urethral catheter, initial encounter (principal); N39.0 Urinary tract infection, site not specified; B95.62 Methicillin resistant Staphylococcus aureus infection as the cause of diseases classified elsewhere; Y84.6 Urinary catheterization as the cause of abnormal reaction of the patient, or of later complication, without mention of misadventure at the time of the procedure
CPT/HCPCS: 96365; J0878

== ENCOUNTER 2023-09-06 06:16 | Day surgery (SDC) | payer OTHER ==
[2023-10-04] MEDS ORDERED: CEFP200 PO (02:08)
[2023-10-04] MEDS ORDERED: SULTRIDS PO (02:08)
== END 2023-09-06 22:58 | disposition home or self-care (01) ==
LOC: WOUND 06:16
DX: E11.621 Type 2 diabetes mellitus with foot ulcer (principal); L97.425 Non-pressure chronic ulcer of left heel and midfoot with muscle involvement without evidence of necrosis; A49.02 Methicillin resistant Staphylococcus aureus infection, unspecified site; E11.51 Type 2 diabetes mellitus with diabetic peripheral angiopathy without gangrene; I87.2 Venous insufficiency (chronic) (peripheral); Z87.891 Personal history of nicotine dependence
CPT/HCPCS: A9270; G0463

== ENCOUNTER 2023-09-14 21:46 | Emergency (ER) | payer OTHER ==
[~2023-09-14] VITALS: Ht 185.4 cm; Wt 72.6 kg
[2023-09-14 22:34] LABS: Hematocrit 38.5 % (37.0-53.0); Hemoglobin 12.7 g/dL (13.5-17.5); Mean Corpuscular Volume 91 fL (80-100); Mean Platelet Volume 9.7 fL (9.1-12.4); Platelet Count 357 K/mm3 (150-400); RDW Coefficient Variation 12.2 % (11.7-14.2); RDW Standard Deviation 40.6 fL (35.1-46.3); Red Blood Cell Count 4.24 M/mm3 (4.30-5.90); White Blood Cell Count 18.18 K/mm3 (4.00-11.30)
[2023-09-14 22:44] LABS: Source, Urine Suprapubic Cath
[2023-09-14 22:57] LABS: Albumin/Globulin Ratio 0.6 (0.8-1.8); Bilirubin, Total 0.6 mg/dL (0.1-1.0); Bun/Creatinine Ratio 17.1 (12.0-20.0); Calcium, Blood 9.2 mg/dL (8.5-10.1); Creatinine, Blood 0.88 mg/dL (0.60-1.20); Globulin, Blood 5.2 g/dL (2.2-4.0); Potassium, Blood 4.1 mmol/L (3.5-5.5); Total Protein, Blood 8.2 g/dL (6.4-8.2)
[2023-09-14 23:14] LABS: Bilirubin, Urine Neg (Neg); Blood, Urine 4+ (Neg); Glucose Qualitative, Urine Neg (Neg); Ketones, Urine Neg (Neg); Leukocyte Esterase, Urine 3+ (Neg); Nitrite, Urine Pos (Neg); Protein, Urine 3+ (Neg); Urobilinogen, Urine NORM (Normal)
[2023-09-14] MEDS ORDERED: ALPR.25 PO (23:20)
[2023-09-14] MEDS ORDERED: LOPE2C (23:20)
[2023-09-14] MEDS ORDERED: SENNA LAXATIVE8.6 MG (23:21)
[2023-09-14 23:28] LABS: Appearance, Urine Turbid (Clear); Color, Urine Yellow (P-Yellow)
[2023-09-14 23:31] LABS: Amorphous Light (0-Heavy); Bacteria Many /hpf; Squamous Epithelial Cells Few /hpf (Few); White Blood Cells, Urine TNTC /hpf (0-5)
[2023-09-14 23:31] LABS: Base Excess Venous 4.6 mmol/L; PCO2 Venous 51.7 mmHg (38-42); pH Blood Venous 7.37 (7.34-7.37)
[2023-09-14 23:32] LABS: Mucus Light (0-Heavy)
[2023-09-14 23:35] LABS: BASOPHILS PERCENT MAN 0 % (0-2); EOSINOPHILS ABSOLUTE MAN 0.18 K/mm3 (0.00-0.68); EOSINOPHILS PERCENT MAN 1 % (0-6); LYMPHOCYTES ABSOLUTE MAN 5.63 K/mm3 (0.84-5.20); LYMPHOCYTES PERCENT MAN 31 % (21-46); MONOCYTES ABSOLUTE MAN 1.27 K/mm3 (0.16-1.47); MONOCYTES PERCENT MAN 7 % (4-13); NEUTROPHILS ABSOLUTE MAN 11.08 K/mm3 (1.96-9.15); SEG NEUTROPHILS PERCENT MAN 61 % (41-73); TOTAL CELLS COUNTED 100
[2023-09-14 23:39] LABS: Beta-hydroxybutyrate 3.4 mg/dL (0.2-2.8); Magnesium, Blood 1.9 mg/dL (1.6-2.4); Phosphorus, Blood 3.6 mg/dL (2.5-4.9); Thyroid Stimulating Hormone 2.75 uIU/mL (0.360-4.800)
[2023-09-15] MEDS ORDERED: SULTRIDS PO (00:48)
[2023-09-15] MEDS ORDERED: CIPR500 PO (00:48)
[2023-09-15 01:43] LABS: Source, Urine Clean Catch
[2023-09-15 01:50] LABS: Bilirubin, Urine Neg (Neg); Blood, Urine 4+ (Neg); Glucose Qualitative, Urine Neg (Neg); Ketones, Urine Neg (Neg); Leukocyte Esterase, Urine 2+ (Neg); Nitrite, Urine Neg (Neg); Protein, Urine 2+ (Neg); Urobilinogen, Urine NORM (Normal)
[2023-09-15 02:26] LABS: Appearance, Urine Hazy (Clear); Color, Urine Yellow (P-Yellow)
[2023-09-15 02:27] LABS: Bacteria Few /hpf; Red Blood Cells, Urine 0-2 /hpf (0-2); Squamous Epithelial Cells Few /hpf (Few)
[2023-09-15 02:53] VITALS: BP 120/56
[2023-10-04] MEDS ORDERED: SULTRIDS PO (02:08)
[2023-10-04] MEDS ORDERED: CEFP200 PO (02:08)
== END 2023-09-15 02:55 | disposition home or self-care (01) ==
LOC: ER 21:46
PROVIDERS: Emergency Medicine
DX: T83.511A Infection and inflammatory reaction due to indwelling urethral catheter, initial encounter (principal); N39.0 Urinary tract infection, site not specified; E86.0 Dehydration; R41.82 Altered mental status, unspecified; Z88.8 Allergy status to other drugs, medicaments and biological substances; Z79.899 Other long term (current) drug therapy; Z79.84 Long term (current) use of oral hypoglycemic drugs; I50.20 Unspecified systolic (congestive) heart failure; E11.9 Type 2 diabetes mellitus without complications; G40.909 Epilepsy, unspecified, not intractable, without status epilepticus; I11.0 Hypertensive heart disease with heart failure; K21.9 Gastro-esophageal reflux disease without esophagitis; I25.2 Old myocardial infarction
CPT/HCPCS: 51102; 71045; 74177; 80053; 81001; 82010; 82803; 83605; 83690; 83735; 84100; 84443; 84484; 85025; 87077; 87086; 87186; 93005; 93010; 96365; 96374-59; 96375-59; 99285-25; A9270; J0744; J2405; J7030; Q9967

== ENCOUNTER 2023-10-27 00:11 | Emergency (ER) | payer OTHER ==
[~2023-10-27] VITALS: Ht 185.4 cm; Wt 77.1 kg
[~2023-10-27 00:11] MED LIST changes: +ALPR.25 PO; +CEFP200 PO; +CIPR500 PO; +LOPE2C; +SENNA LAXATIVE8.6 MG
[2023-10-27 03:08] LABS: BASOPHILS ABSOLUTE AUTO 0.04 K/mm3 (0.00-0.23); BASOPHILS PERCENT AUTO 0 % (0-2); EOSINOPHILS ABSOLUTE AUTO 0.24 K/mm3 (0.00-0.68); EOSINOPHILS PERCENT AUTO 2 % (0-6); Hematocrit 32.9 % (37.0-53.0); Hemoglobin 10.9 g/dL (13.5-17.5); IMMATURE GRAN ABSOLUTE AUTO 0.03 K/mm3 (0.00-0.10); IMMATURE GRAN PERCENT AUTO 0 % (0-1); LYMPHOCYTES ABSOLUTE AUTO 3.26 K/mm3 (0.84-5.20); LYMPHOCYTES PERCENT AUTO 33 % (21-46); MONOCYTES ABSOLUTE AUTO 0.82 K/mm3 (0.16-1.47); MONOCYTES PERCENT AUTO 8 % (4-13); Mean Corpuscular HGB 29.5 pg (26.0-34.0); Mean Corpuscular HGB Conc 33.1 g/dL (31.5-36.5); Mean Corpuscular Volume 89 fL (80-100); NEUTROPHILS ABSOLUTE AUTO 5.51 K/mm3 (1.96-9.15); NEUTROPHILS PERCENT AUTO 56 % (41-73); Platelet Count 332 K/mm3 (150-400); RDW Coefficient Variation 13.1 % (11.7-14.2); RDW Standard Deviation 42.5 fL (35.1-46.3)
[2023-10-27 03:31] LABS: Albumin, Blood 2.7 g/dL (3.4-5.0); Albumin/Globulin Ratio 0.6 (0.8-1.8); Bilirubin, Total 0.1 mg/dL (0.1-1.0); Bun/Creatinine Ratio 17.2 (12.0-20.0); Calcium, Blood 8.5 mg/dL (8.5-10.1); Creatinine, Blood 0.99 mg/dL (0.60-1.20); Globulin, Blood 4.8 g/dL (2.2-4.0); Potassium, Blood 3.8 mmol/L (3.5-5.5); Total Protein, Blood 7.5 g/dL (6.4-8.2)
[2023-10-27 07:21] VITALS: BP 130/55
== END 2023-10-27 07:49 | disposition home or self-care (01) ==
LOC: ER 00:11
PROVIDERS: Emergency Medicine
DX: R31.9 Hematuria, unspecified (principal); I11.0 Hypertensive heart disease with heart failure; I50.22 Chronic systolic (congestive) heart failure; E11.9 Type 2 diabetes mellitus without complications; F03.90 Unspecified dementia, unspecified severity, without behavioral disturbance, psychotic disturbance, mood disturbance, and anxiety; G40.909 Epilepsy, unspecified, not intractable, without status epilepticus; K21.9 Gastro-esophageal reflux disease without esophagitis; F32.9 Major depressive disorder, single episode, unspecified; I25.2 Old myocardial infarction; I25.10 Atherosclerotic heart disease of native coronary artery without angina pectoris; Z85.46 Personal history of malignant neoplasm of prostate; Z88.8 Allergy status to other drugs, medicaments and biological substances; Z79.4 Long term (current) use of insulin; Z86.73 Personal history of transient ischemic attack (TIA), and cerebral infarction without residual deficits
CPT/HCPCS: 74177; 80053; 85025; 86850; 86900; 86901; 99284-25; A9270; Q9967

== ENCOUNTER 2024-04-12 19:51 | Emergency (ER) | payer OTHER ==
[~2024-04-12] VITALS: Ht 180.3 cm; Wt 81.7 kg
[~2024-04-12 19:51] MED LIST changes: +CELE200 PO; +MELATONIN5 M1 PO; +METH10 PO; +MIRT15ST PO; -SENNA LAXATIVE8.6 MG; +SENNA LAXATIVE8.6 MG PO
[2024-04-12 20:16] LABS: BASOPHILS ABSOLUTE AUTO 0.04 K/mm3 (0.00-0.23); BASOPHILS PERCENT AUTO 0 % (0-2); EOSINOPHILS ABSOLUTE AUTO 0.54 K/mm3 (0.00-0.68); EOSINOPHILS PERCENT AUTO 5 % (0-6); Hematocrit 36.4 % (37.0-53.0); Hemoglobin 11.3 g/dL (13.5-17.5); IMMATURE GRAN ABSOLUTE AUTO 0.02 K/mm3 (0.00-0.10); IMMATURE GRAN PERCENT AUTO 0 % (0-1); LYMPHOCYTES PERCENT AUTO 44 % (21-46); MONOCYTES PERCENT AUTO 8 % (4-13); Mean Corpuscular HGB 28.2 pg (26.0-34.0); Mean Corpuscular Volume 91 fL (80-100); Mean Platelet Volume 9.7 fL (9.1-12.4); NEUTROPHILS ABSOLUTE AUTO 4.27 K/mm3 (1.96-9.15); NEUTROPHILS PERCENT AUTO 42 % (41-73); Platelet Count 244 K/mm3 (150-400); RDW Coefficient Variation 14.1 % (11.7-14.2); RDW Standard Deviation 47.1 fL (35.1-46.3); Red Blood Cell Count 4.01 M/mm3 (4.30-5.90); White Blood Cell Count 10.17 K/mm3 (4.00-11.30)
[2024-04-12 20:28] LABS: Albumin, Blood 2.8 g/dL (3.4-5.0); Albumin/Globulin Ratio 0.6 (0.8-1.8); Bilirubin, Total 0.6 mg/dL (0.1-1.0); Bun/Creatinine Ratio 32.4 (12.0-20.0); Calcium, Blood 9.1 mg/dL (8.5-10.1); Creatinine, Blood 0.65 mg/dL (0.60-1.20); Globulin, Blood 4.7 g/dL (2.2-4.0); Potassium, Blood 4.5 mmol/L (3.5-5.5); Total Protein, Blood 7.5 g/dL (6.4-8.2)
[2024-04-12 22:04] LABS: Thyroid Stimulating Hormone 2.94 uIU/mL (0.360-4.800)
[2024-04-12] MEDS ORDERED: IBUP800 PO (22:35)
[2024-04-12] MEDS ORDERED: LOPE2C PO (22:36)
[2024-04-12] MEDS ORDERED: ONDA4ODT MM (22:38)
[2024-04-12 22:47] LABS: Influenza A, PCR NEGATIVE (NEGATIVE); Influenza B, PCR NEGATIVE (NEGATIVE); Resp Syncytial Virus, PCR NEGATIVE (NEGATIVE); SARS-Cov-2 (COVID-19) PCR, MMC NEGATIVE (NEGATIVE)
[2024-04-12] MEDS ORDERED: NS 1,000 ML IV SCH (23:20)
[2024-04-12 23:52] LABS: Source, Urine Straight Cath
[2024-04-12 23:54] LABS: Bilirubin, Urine Neg (Neg); Blood, Urine 3+ (Neg); Glucose Qualitative, Urine Neg (Neg); Ketones, Urine Neg (Neg); Leukocyte Esterase, Urine 3+ (Neg); Nitrite, Urine Neg (Neg); Protein, Urine 1+ (Neg); Specific Gravity, Urine 1.015 (1.003-1.022); Urobilinogen, Urine NORM (Normal)
[2024-04-13 00:01] LABS: Appearance, Urine Hazy (Clear); Color, Urine Yellow (P-Yellow)
[2024-04-13 00:02] LABS: Bacteria Mod /hpf; Squamous Epithelial Cells Few /hpf (Few); White Blood Cells, Urine 25-50 /hpf (0-5)
[2024-04-13] MEDS ORDERED: CefTRIAXone Sodium 1,000 MG in NS 50 ML IV ONE (01:10)
[2024-04-13] MEDS ORDERED: Trimethoprim/Sulfamethoxazole DS Tab PO ONE (01:10)
[2024-04-13] MEDS ORDERED: CEFU500T30 PO (02:08)
[2024-04-13] MEDS ORDERED: Diflucan100 MG PO (02:09)
[2024-04-13 02:30] VITALS: BP 145/59
== END 2024-04-13 02:50 | disposition home or self-care (01) ==
LOC: ER 19:51
PROVIDERS: Emergency Medicine; Student in an Organized Health Care Education/Training Program
DX: N39.0 Urinary tract infection, site not specified (principal); R47.81 Slurred speech; Z88.8 Allergy status to other drugs, medicaments and biological substances; Z79.899 Other long term (current) drug therapy; I11.0 Hypertensive heart disease with heart failure; I50.22 Chronic systolic (congestive) heart failure; E11.9 Type 2 diabetes mellitus without complications; G40.909 Epilepsy, unspecified, not intractable, without status epilepticus; K21.9 Gastro-esophageal reflux disease without esophagitis; I25.2 Old myocardial infarction
CPT/HCPCS: 0241U; 51705; 70450; 80053; 81001; 83735; 84443; 85025; 87086; 93005; 93010; 96361; 96361-59; 96365; 99285-25; A9270; C2627; J0696; J7030

== ENCOUNTER 2024-06-14 19:52 | Emergency (ER) | payer OTHER ==
[~2024-06-14] VITALS: Ht 182.9 cm; Wt 72.6 kg
[~2024-06-14 19:52] MED LIST changes: +CEFU500T30 PO; +Diflucan100 MG PO; +IBUP800 PO; +ONDA4ODT MM
[2024-06-14 20:29] LABS: BASOPHILS ABSOLUTE AUTO 0.04 K/mm3 (0.00-0.23); BASOPHILS PERCENT AUTO 0 % (0-2); EOSINOPHILS ABSOLUTE AUTO 0.21 K/mm3 (0.00-0.68); EOSINOPHILS PERCENT AUTO 2 % (0-6); Hematocrit 39.3 % (37.0-53.0); Hemoglobin 12.9 g/dL (13.5-17.5); IMMATURE GRAN ABSOLUTE AUTO 0.02 K/mm3 (0.00-0.10); IMMATURE GRAN PERCENT AUTO 0 % (0-1); LYMPHOCYTES PERCENT AUTO 53 % (21-46); MONOCYTES ABSOLUTE AUTO 0.75 K/mm3 (0.16-1.47); MONOCYTES PERCENT AUTO 7 % (4-13); Mean Corpuscular HGB 29.4 pg (26.0-34.0); Mean Corpuscular HGB Conc 32.8 g/dL (31.5-36.5); Mean Corpuscular Volume 90 fL (80-100); Mean Platelet Volume 9.7 fL (9.1-12.4); NEUTROPHILS ABSOLUTE AUTO 3.97 K/mm3 (1.96-9.15); NEUTROPHILS PERCENT AUTO 37 % (41-73); Platelet Count 298 K/mm3 (150-400); RDW Coefficient Variation 13.7 % (11.7-14.2); RDW Standard Deviation 45.1 fL (35.1-46.3); Red Blood Cell Count 4.39 M/mm3 (4.30-5.90); White Blood Cell Count 10.59 K/mm3 (4.00-11.30)
[2024-06-14 20:49] LABS: Albumin, Blood 3.3 g/dL (3.4-5.0); Albumin/Globulin Ratio 0.7 (0.8-1.8); Bilirubin, Total 0.2 mg/dL (0.1-1.0); Bun/Creatinine Ratio 30.7 (12.0-20.0); Calcium, Blood 8.7 mg/dL (8.5-10.1); Creatinine, Blood 1.01 mg/dL (0.60-1.20); Globulin, Blood 4.9 g/dL (2.2-4.0); Potassium, Blood 4.1 mmol/L (3.5-5.5); Total Protein, Blood 8.2 g/dL (6.4-8.2)
[2024-06-14 21:40] LABS: Source, Urine Clean Catch
[2024-06-14 21:53] LABS: Appearance, Urine Clear (Clear); Bilirubin, Urine Neg (Neg); Blood, Urine 1+ (Neg); Color, Urine Yellow (P-Yellow); Glucose Qualitative, Urine Neg (Neg); Ketones, Urine Neg (Neg); Leukocyte Esterase, Urine 3+ (Neg); Nitrite, Urine Neg (Neg); Protein, Urine 2+ (Neg); Specific Gravity, Urine 1.005 (1.003-1.022); Urobilinogen, Urine NORM (Normal)
[2024-06-14 22:04] LABS: Bacteria Many /hpf; Red Blood Cells, Urine 0-2 /hpf (0-2); Squamous Epithelial Cells Few /hpf (Few)
[2024-06-14 22:05] LABS: Yeast/Fungi Urine Mod /hpf
[2024-06-14 22:12] LABS: Albumin/Globulin Ratio 0.7 (0.8-1.8); Bilirubin, Total 0.1 mg/dL (0.1-1.0); Bun/Creatinine Ratio 31.7 (12.0-20.0); Calcium, Blood 8.3 mg/dL (8.5-10.1); Creatinine, Blood 1.01 mg/dL (0.60-1.20); Free Thyroxine 1.09 ng/dL (0.70-1.60); Globulin, Blood 4.1 g/dL (2.2-4.0); Potassium, Blood 4.3 mmol/L (3.5-5.5); Thyroid Stimulating Hormone 2.56 uIU/mL (0.360-4.800); Total Protein, Blood 7.1 g/dL (6.4-8.2)
[2024-06-14] MEDS ORDERED: OxyCODONE HCL 5 MG TAB PO ONE (22:30)
[2024-06-14] MEDS ORDERED: Cefpodoxime Proxetil 200 MG Tab PO ONE (23:35)
[2024-06-14] MEDS ORDERED: CEFP200 PO (23:40)
[2024-06-14 23:45] VITALS: BP 122/68
[2024-06-17] MEDS ORDERED: CEFP200 PO ×2 (15:38→16:55)
== END 2024-06-14 23:50 | disposition home or self-care (01) ==
LOC: ER 19:52
PROVIDERS: Emergency Medicine; Physician Assistant
DX: N39.0 Urinary tract infection, site not specified (principal); Z88.8 Allergy status to other drugs, medicaments and biological substances; Z79.899 Other long term (current) drug therapy; I11.0 Hypertensive heart disease with heart failure; I50.22 Chronic systolic (congestive) heart failure; E11.9 Type 2 diabetes mellitus without complications; F03.90 Unspecified dementia, unspecified severity, without behavioral disturbance, psychotic disturbance, mood disturbance, and anxiety; G40.909 Epilepsy, unspecified, not intractable, without status epilepticus; K21.9 Gastro-esophageal reflux disease without esophagitis
CPT/HCPCS: 70450; 71045; 74177; 80053; 81001; 82140; 84439; 84443; 85025; 87086; 93005; 93010; 99285-25; A9270; Q9967

== ENCOUNTER 2024-08-15 17:57 | Emergency (ER) | payer OTHER ==
[~2024-08-15] VITALS: Ht 177.8 cm; Wt 77.1 kg
[2024-08-15 19:47] LABS: BASOPHILS ABSOLUTE AUTO 0.04 K/mm3 (0.00-0.23); BASOPHILS PERCENT AUTO 0 % (0-2); EOSINOPHILS ABSOLUTE AUTO 0.24 K/mm3 (0.00-0.68); EOSINOPHILS PERCENT AUTO 2 % (0-6); Hematocrit 37.2 % (37.0-53.0); IMMATURE GRAN ABSOLUTE AUTO 0.02 K/mm3 (0.00-0.10); IMMATURE GRAN PERCENT AUTO 0 % (0-1); LYMPHOCYTES ABSOLUTE AUTO 3.65 K/mm3 (0.84-5.20); LYMPHOCYTES PERCENT AUTO 35 % (21-46); MONOCYTES ABSOLUTE AUTO 0.79 K/mm3 (0.16-1.47); MONOCYTES PERCENT AUTO 8 % (4-13); Mean Corpuscular HGB 29.2 pg (26.0-34.0); Mean Corpuscular HGB Conc 32.3 g/dL (31.5-36.5); Mean Corpuscular Volume 91 fL (80-100); Mean Platelet Volume 9.7 fL (9.1-12.4); NEUTROPHILS ABSOLUTE AUTO 5.56 K/mm3 (1.96-9.15); NEUTROPHILS PERCENT AUTO 54 % (41-73); Platelet Count 211 K/mm3 (150-400); RDW Coefficient Variation 12.8 % (11.7-14.2); RDW Standard Deviation 42.2 fL (35.1-46.3); Red Blood Cell Count 4.11 M/mm3 (4.30-5.90)
[2024-08-15 20:06] LABS: Alanine Aminotransfer (ALT/SGP 18 U/L (12-78); Albumin, Blood 3.1 g/dL (3.4-5.0); Albumin/Globulin Ratio 0.7 (0.8-1.8); Alk Phos 78 U/L (50-136); Anion Gap 8 mmol/L (3-11); Aspartate Aminotrans (AST/SGOT 17 U/L (12-37); Bilirubin, Total 0.3 mg/dL (0.1-1.0); Blood Urea Nitrogen 24 mg/dL (8-24); Bun/Creatinine Ratio 32.7 (12.0-20.0); CO2, Blood 32 mmol/L (21-32); Calcium, Blood 9.2 mg/dL (8.5-10.1); Chloride, Blood 104 mmol/L (98-108); Creatinine, Blood 0.74 mg/dL (0.60-1.20); Ethanol (Alcohol), Blood, Med <3 mg/dL; Globulin, Blood 4.5 g/dL (2.2-4.0); Glomerular Filtration Rate 88 (60-); Glucose, Blood 149 mg/dL (70-99); Sodium, Blood 140 mmol/L (136-145); Total Protein, Blood 7.6 g/dL (6.4-8.2)
[2024-08-15 23:17] LABS: Source, Urine Foley catheter
[2024-08-15 23:21] LABS: Bilirubin, Urine Neg (Neg); Blood, Urine 3+ (Neg); Glucose Qualitative, Urine Neg (Neg); Ketones, Urine Neg (Neg); Leukocyte Esterase, Urine 3+ (Neg); Nitrite, Urine Neg (Neg); Protein, Urine 2+ (Neg); Urobilinogen, Urine NORM (Normal)
[2024-08-15 23:28] LABS: Appearance, Urine Hazy (Clear); Color, Urine Yellow (P-Yellow)
[2024-08-15 23:29] LABS: Amorphous Light (0-Heavy); Bacteria Many /hpf; Mucus Light (0-Heavy); Squamous Epithelial Cells Few /hpf (Few); White Blood Cells, Urine TNTC /hpf (0-5)
[2024-08-15] MEDS ORDERED: CefTRIAXone Sodium 1,000 MG in NS 100 ML IV ONE (23:40)
[2024-08-15 23:55] LABS: U Amphetamine Screen Not Detected; U Barbituate Screen Not Detected; U Benzodiazapine Screen Not Detected; U Buprenorphine Screen Not Detected; U Cannabinoids Screen Not Detected; U Cocaine Screen Not Detected; U Methadone Screen DETECTED; U Methamphetamine Screen Not Detected; U Opiates Screen Not Detected; U Oxycodone Screen Not Detected; U Phencyclidine Screen Not Detected
[2024-08-16 00:30] VITALS: BP 125/69
[2024-08-20] MEDS ORDERED: Bactrim Ds Tab1 EACH PO (09:15)
== END 2024-08-16 01:06 | disposition home or self-care (01) ==
LOC: ER 17:57
PROVIDERS: Student in an Organized Health Care Education/Training Program
DX: N39.0 Urinary tract infection, site not specified (principal); F03.90 Unspecified dementia, unspecified severity, without behavioral disturbance, psychotic disturbance, mood disturbance, and anxiety; I11.0 Hypertensive heart disease with heart failure; I50.22 Chronic systolic (congestive) heart failure; I25.2 Old myocardial infarction; I25.10 Atherosclerotic heart disease of native coronary artery without angina pectoris; E11.9 Type 2 diabetes mellitus without complications; K21.9 Gastro-esophageal reflux disease without esophagitis; G40.909 Epilepsy, unspecified, not intractable, without status epilepticus; Z86.73 Personal history of transient ischemic attack (TIA), and cerebral infarction without residual deficits; Z88.8 Allergy status to other drugs, medicaments and biological substances; Z79.4 Long term (current) use of insulin; Z79.899 Other long term (current) drug therapy
CPT/HCPCS: 51702; 70450; 80053; 80320; 81001; 85025; 87077; 87086; 87147; 87186; 96365; 99285-25; J0696